=== PATIENT | male | born 1965 | race Caucasian/White ===

== ENCOUNTER → 2019-01-11 | Day surgery (SDC) | payer OTHER ==
[~2019-01-11] VITALS: Ht 175.3 cm; Wt 101.4 kg
[~2019-01-11] MED LIST: ASPI-1182 PO; ATOR10TA84 PO; LIDOCAINE/PF 2% 5 ML VIAL IM ONE; LISI-660 PO; NADO20 PO; OMEP10 PO; PROPOFOL 1% 20 ML VIAL IVP ONE; SIMV5TAB59 PO; SODIUM CHLORIDE 0.9% 1,000 ML IV ONE; SPIR25 PO
== END | disposition home or self-care (01) ==
LOC: SURGERY 12:55
PROVIDERS: ATTEND Internal Medicine Gastroenterology
DX: K74.60 Unspecified cirrhosis of liver (principal); I85.00 Esophageal varices without bleeding; K29.60 Other gastritis without bleeding; K76.6 Portal hypertension; K31.89 Other diseases of stomach and duodenum; I10 Essential (primary) hypertension; Z86.73 Personal history of transient ischemic attack (TIA), and cerebral infarction without residual deficits; Z79.899 Other long term (current) drug therapy
CPT/HCPCS: 43239; 93005; C1769; J2704; J3490; J7030; 88305; 88312; 88313